=== PATIENT | female | born 1945 | race Caucasian/White ===

== ENCOUNTER 2023-03-16 11:30 | Outpatient (REF) | payer OTHER, SELFPAY ==
[2023-03-16 15:44] LABS: Alanine Aminotransferase 8 U/L (0-31); Albumin Level 4.6 g/dL (3.5-5.0); Alkaline Phosphatase 58 U/L (39-117); Anion Gap 13 (12-20); Aspartate Amino Transferase 13 U/L (5-31); Bilirubin Direct 0.2 mg/dL (0.0-0.5); Bilirubin Total 0.4 mg/dL (0.0-1.0); Blood Urea Nitrogen 20 mg/dL (9-16); Calcium 10.3 mg/dL (8.4-10.2); Carbon Dioxide 23 mmol/L (22-29); Chloride 105 mmol/L (96-108); Cholesterol 153 mg/dL (<200); Estimated Glomerular Filt Rate > 60; Glucose Fasting 103 mg/dL (60-99); HDL Cholesterol 79 mg/dL (>40); LDL Cholesterol Calculated 53 mg/dL (<100); Potassium 4.3 mmol/L (3.3-5.1); Sodium 137 mmol/L (135-145); Total Protein 7.8 g/dL (6.5-8.0); Triglycerides 108 mg/dL (<150)
== END 2023-03-16 11:31 | disposition home or self-care (01) ==
LOC: HO.CHCLDS 11:30
PROVIDERS: Visit Provider Student in an Organized Health Care Education/Training Program
DX: E11.9 Type 2 diabetes mellitus without complications (principal)
CPT/HCPCS: 36415; 80048; 80061; 80076

== ENCOUNTER 2024-11-06 09:57 | Outpatient (REF) | payer MEDICARE, OTHER, SELFPAY ==
--- OUTSIDE RECORDS SUMMARY | 2024-11-06 11:35 | XMS_ITS | Encounter Summary ---
Author Organization [employer] Address [address] [place] [address] 7t [place] [address] Care Team Providers Care Podiatry Teacher Name Role Phone Norma Brown MD Primary Care Provider [phone] Reason for Visit * Reason Comments Med Refill Encounter Details Date Type Department Care Team ([facility] st Contact Info) Description 11/01/[address] [facility] CHC MED & PEDS [address] [place] [address] Norma Brown MD [address] [place] [address] Social History Tobacco Use Types Packs/Day Years Used Date Smoking Tobacco: Never Assessed Comments Unknown Sex and Gender Information Value Date Recorded Sex Assigned at Female 05/22/2022 10:18 AM EDT Legal Sex Female 10:18 AM EDT Gender Identity Female 05/22/2022 10:18 AM EDT Sexual Orientation Don't know 05/22/2022 10 :18 AM EDT documented as of this encounter Plan of Treatment Not on file documented as of this encounter Visit Diagnoses Not on filedocumented in this encounter Care Teams Podiatry Teacher Relationship Specialty Start Date End Date Norma Brown MD [address] [place] [address] PCP - General Family Medicine 07/05/12 documented as of this encounter
--- OUTSIDE RECORDS SUMMARY | 2024-11-06 11:35 | XMS_ITS | Encounter Summary ---
Author Organization [employer] Address [address] [place] [address] 7[address] [place] [address] Care Team Providers Care 3Rd Pressman Name Role Phone Norma Brown MD Primary Care Provider [phone] Reason for Visit * Reason Comments Med Refill Encounter Details Date Type Department Care Team ([facility] st Contact Info) Description 11/13/2022 Refill [facility] CHC MED & PEDS [address] [place] [address] Norma Brown MD [address] [place] [address] Social History Tobacco Use Types Packs/Day Years [...] on filedocumented in this encounter Care Teams 3Rd Pressman Relationship Specialty Start Date End Date Norma Brown MD [address] [place] [address] PCP - General Family Medicine 07/05/12 documented as of this encounter
--- OUTSIDE RECORDS SUMMARY | 2024-11-06 11:35 | XMS_ITS | Encounter Summary ---
Author Organization [employer] Address [address] [facility] 7t [place] [address] Care Team Providers Care Die Tester Name Role Phone Norma Brown MD Primary Care Provider [phone] Encounter Details Date Type Department Care Team (Latest Contact Info) Description 11/06/2024 Travel Social History Tobacco Use Types Packs/Day Years Used Date Smoking Tobacco: Never Smokeless Tobacco: Never Alcohol Use Standard Drinks/Week Comments Never 0 (1 standard drink = 0.6 oz pur e alcohol) Depression Answer Date Recorded Patient Health Questionnaire-9 Score 6 03/16/2023 Housing Stability Answer Date Recorded What is your housing situation today? I have jesusjuan brannon 10/29/[address] you li ve. Do you have problems with any of the following? None of the above 10/29/2024 Food Insecurity Answer Date Recorded Within the past 12 months, y ou worried that your food would run out before you got money to buy more: Never True 10/29/2024 Within the past 12 months,th e food you bought just didn't last and you didn't have enough money to get more: Never True 03/2025 Transportation Answer Date Recorded In the past 12 months, has l ack of transportation kept you from medical appts, meetings, work or from getting things needed for daily living? No 10/29/2024 Utilities Answer Date Recorded In the past 12 months, has t he electric, gas, oil or water company threatened to shut off services in your home? No 10/29/2024 Depression Answer Date Recorded Patient Health Questionnaire-2 Score 4 03/16/2023 Internet Access Answer Date Recorded Internet Access Q1 No 10/29/2024 Internet Access Q2 Internet/Wi-Fi access is not available where I live 10/29/2024 Comments Unknown Sex and Gender Information Value Date Recorded Sex Assigned at Female 05/22/2022 10:18 AM EDT Legal Sex Female 10:18 AM EDT Gender Identity Female 05/22/2022 10:18 AM EDT Sexual Orientation Don't know 05/22/2022 10 :18 AM EDT documented as of this encounter Plan of Treatment Not on file documented as of this encounter Visit Diagnoses Not on filedocumented in this encounter Additional Health Concerns Assessment Noted Time PHQ-9 Depression Total Score: 6 03/16/20 23 10:33 AM EDT documented as of this encounter Care Teams Die Tester Relationship Specialty Start Date End Date Norma Brown MD [address] [place] [id number] PCP - General Family Medicine 07/05/12 documented as of this encounter
--- OUTSIDE RECORDS SUMMARY | 2024-11-06 11:35 | XMS_ITS | Encounter Summary ---
Author Organization [facility] Address [address] [place] [address] 7t [place] [address] Care Team Providers Care Client Director Name Role Phone Norma Brown MD Primary Care Provider [phone] Reason for Referral * Consultation (Routine) - Pending Review Specialty Diagnoses / Procedures Referred By Roxanne vidal Referred To Contact Ophthalmology Diagnoses Type 2 diabetes mellitus without complication, without long-term current use of insulin (CMS/HCC) Benign hypertension Norma Brown MD [address] [place] [address] Phone: tel: fax: Referral ID Status Reason Start Date Expiration Date Visits Requested Visits Authorized [id number] Pending Review Specialty Services Required 11/06/2024 11/06/2025 1 1 Reason for Visit * Reason Comments adult well care visit Encounter Details Date Type Department Care Team ([facility] Contact Info) Description 11/06/2024 9:00 AM EDT Office Visit [facility] CHC MED & PEDS [address] [place] [address] Norma Brown MD [address] [place] [address] Type 2 diabetes mellitus without complication, without long-term current use of insulin (CMS/HCC) (Primary Dx); Benign hypertension; Unstable gait; Encounter for immunization; PE (physical exam), annual Social History Tobacco Use Types Packs/Day Years Used Date Smoking Tobacco: Never Smokeless Tobacco: Never Alcohol Use Standard Drinks/Week Comments Never 0 (1 standard drink = 0.6 oz pur e alcohol) Depression Answer Date Recorded Patient Health Questionnaire-9 Score 6 03/16/2023 Housing Stability Answer Date Recorded What is your housing situation today? I have jesus brannon 10/29/[address] you [...] AM EDT documented as of this encounter Last Filed Vital Signs Vital Sign Reading Time Taken Comments Blood Pressure 133/75 11/06/2024 9:04 AM EDT Pulse 88 11/06/2024 9:04 AM EDT Temperature 37.1 ??C (98.7 ??F) 11/06/2024 9:04 AM ED T Respiratory Rate 16 11/06/2024 9:04 AM EDT Oxygen Saturation 98% 11/06/2024 9:04 AM EDT Inhaled Oxygen Concentration - - Weight 52.6 kg (116 lb) 11/06/2024 9:04 AM EDT Height 151.1 cm (4' 11.5 ) 11/06/2024 9:04 AM ED T Body Mass Index 23.04 11/06/2024 9:04 AM EDT documented in this encounter Progress Notes * Norma Brown MD - 11/06/2024 9:00 AM EDT Subjective Patient ID: Krista Peck is a 78 y.o. female who presents for No chief complaint on file.. Diabetes She presents for her follow-up diabetic visit. She has type 2 diabetes mellitus. Her disease coursehas been stable. There are no hypoglycemic associated symptoms. Pertinent negatives for hypoglycemia include no headaches. There are no diabetic associated symptoms. Pertinent negatives for diabetes include no chest pain. There are no hypoglycemic complications. Symptoms are stable. There are no diabetic complications. Risk factors for coronary artery disease include family history, hypertension,sedentary lifestyle and post-menopausal. Current diabetic treatment includes oral agent (monotherapy). She is compliant with treatment all of the time. She is following a diabetic diet. She has not had a previous visit with a dietitian. An KT inhibitor/angiotensin II receptor ean is being taken. Review of Systems Constitutional: Negative. Respiratory: Negative. Negative for shortness of breath. Cardiovascular: Negative for chest pain and palpitations. Gastrointestinal: Negative. Genitourinary: Negative. Musculoskeletal: Negative for neck pain. Neurological: Negative for headaches. Objective Physical Exam Constitutional: General: She is not in acute distress. Appearance: Normal appearance. She is normal weight. HENT: Head: Normocephalic and atraumatic. Right Ear: Tympanic membrane normal. Left Ear: Tympanic membrane normal. Nose: Nose normal. Mouth/Throat: Mouth: Mucous membranes are moist. Comments: Has braces Eyes: Extraocular Movements: Extraocular movements intact. Pupils: Pupils are equal, round, and reactive to light. Cardiovascular: Rate and Rhythm: Normal rate and regular rhythm. Pulses: Dorsalis pedis pulses are 2+ on the right side and 2+ on the left side. Posterior tibial pulses are 2+ on the right side and 2+ on the left side. Heart sounds: Normal heart sounds. No murmur heard. Pulmonary: Effort: Pulmonary effort is normal. Breath sounds: Normal breath sounds. Abdominal: General: Abdomen is flat. Bowel sounds are normal. There is no distension. Palpations: Abdomen is soft. There is no mass. Tenderness: There is no abdominal tenderness. There is no guarding. Musculoskeletal: General: Normal range of motion. Right lower leg: No edema. Left lower leg: No edema. Right foot: Normal range of motion. No deformity, bunion, Charcot foot or prominent metatarsal heads. Left foot: Normal range of motion. No deformity, bunion, Charcot foot or prominent metatarsal heads. Feet: Right foot: Protective Sensation: 7 sites tested. 7 sites sensed. Skin integrity: Skin integrity normal. No ulcer, blister, skin breakdown, erythema, warmth, callus or dry skin. Toenail Condition: Right toenails are normal. Left foot: Protective Sensation: 7 sites tested. 7 sites sensed. Skin integrity: Skin integrity normal. No ulcer, blister, skin breakdown, erythema, warmth, callus or dry skin. Toenail Condition: Left toenails are normal. Skin: General: Skin is warm. Capillary Refill: Capillary refill takes less than 2 seconds. Findings: No rash. Neurological: General: No focal deficit present. Mental Status: She is alert and oriented to person, place, and time. Psychiatric: Mood and Affect: Mood normal. Behavior: Behavior normal. Assessment/Plan Diagnoses and all orders for this visit: Type 2 diabetes mellitus without complication, without long-term current use of insulin ([facility]) Comments: No changes in med Labs ordered Advised Low sugar and Low carb diet. Counseled regarding self-monitoring of blood glucose. Counseled re: potential co-morbidities including cardiovascular disease Pt refuses to check sugars at home Orders: - Basic Metabolic Panel; Future - Lipid Panel, Standard; Future - Hepatic Function Panel; Future - Albumin, Random Urine W/Creatinine; Future - Referral to Ophthalmology; Future - Hemoglobin A1c; Future - POCT Glucose - POCT HGB A1C Benign hypertension Comments: Well controlled Cont Same meds Maintain a low-sodium diet (less than 2 grams per day). Maintain a regular cardiovascular exercise program. Advised to maintain a low-fat, low-cholesterol diet. Orders: - Basic Metabolic Panel; Future - Lipid Panel, Standard; Future - Hepatic Function Panel; Future - Referral to Ophthalmology; Future Unstable gait Comments: pt will benefit from 3 inch stoop to get into her house and kitchen instead of the 6inch and 6 1/2 inch stoop to avoid falls and further damage to her health Encounter for immunization - PCV-20 VACCINE 6 wks + PE (physical exam), annual Comments: PCV 20 given today RSV to be received at [facility] Other orders - cyanocobalamin (Vitamin B-12) 1000 MCG tablet; Take 1 tablet (1,000 mcg) by mouth Once per day. documented in this encounter Plan of Treatment Scheduled Orders Name Type Priority Associated Diagnoses Orde r Schedule Basic Metabolic Panel Lab Routine Type 2 diabetes mellitus without complication, without long-term current use of insulin (CMS/HCC) Benign hypertension Expected: 11/06/2024 (Approximate), Expires: 11/06/2025 Lipid Panel, Standard Lab Routine Type 2 diabetes mellitus without complication, without long-term current use of insulin (CMS/HCC) Benign hypertension Expected: 11/06/2024 (Approximate), Expires: 11/06/2025 Hepatic Function Panel Lab Routine Type 2 diabetes mellitus without complication, without long-term current use of insulin (CMS/HCC) Benign hypertension Expected: 11/06/2024 (Approximate), Expires: 11/06/2025 Albumin, Random Urine W/Creatinine Lab Routine Type 2 diabetes mellitus without complication, without long-term current use of insulin (CMS/HCC) Expected: 11/06/2024 (Approximate), Expires: 11/06/2025 Hemoglobin A1c Lab Routine Type 2 diabetes mellitus without complication, without long-term current use of insulin (CMS/HCC) Expected: 11/06/2024 (Approximate), Expires: 11/06/2025 Scheduled Referrals Name Type Priority Associated Diagnoses Orde r Schedule Referral to Ophthalmology Outpatient Referral Routine Type 2 diabetes mellitus without complication, without long-term current use of insulin (CMS/HCC) Benign hypertension Expected: 11/06/2024 (Approximate), Expires: 11/06/2025 documented as of this encounter Procedures Procedure Name Priority Date/Time Associated Diagnosis Comments POCT GLYCATED HEMOGLOBIN, TOTAL Routine 11/06/2024 9:29 AM EDT Type 2 diabetes mellitus without complication, without long-term current use of insulin (CMS/HCC) POCT GLUCOSE Routine 11/06/2024 9:28 AM EDT Type 2 diabetes mellitus without complication, without long-term current use of insulin (CMS/HCC) documented in this encounter Results * POCT HGB A1C (11/06/2024 9:29 AM EDT) Hemoglobin A1C 6.0 4.0 - 6.0 % QC Media Lot # [id number] Lot# Expiration Date Blood 11/06/2024 9:29 AM EDT Norma Brown MD POINT OF CARE TEST ENTER/EDIT OR DERABLES Final Result * POCT Glucose (11/06/2024 9:28 AM EDT) Glucose Blood, POC 123 60 - 200 mg/dL QC Media Lot # [id number] Lot# Expiration Date Blood Capillary blood specimen / Unknown 11/06/2024 9:28 AM EDT Result [facility] Norma Brown MD POINT OF CARE TEST ENTER/EDIT OR DERABLES Final Result documented in this encounter Visit Diagnoses Diagnosis Type 2 diabetes mellitus without complication, without long-term current use of insulin ([facility])- Primary Benign hypertension Essential hypertension, benign Unstable gait Abnormality of gait Encounter for immunization PE (physical exam), annual documented in this encounter Additional Health Concerns Assessment Noted Time PHQ-9 Depression Total Score: 6 03/16/20 23 10:33 AM EDT documented as of this encounter Care Teams Client Director Relationship Specialty Start Date End Date Norma Brown MD [address] [place] [id number] PCP - General Family Medicine 07/05/12 documented as of this encounter
--- OUTSIDE RECORDS SUMMARY | 2024-11-06 11:35 | XMS_ITS | Encounter Summary ---
Author Organization [employer] Address [address] [place] [address] [address] [place] [address] Care Team Providers Care Room Cooler Installer Name Role Phone Norma Brown MD Primary Care Provider [phone] Reason for Visit * Reason Comments Med Refill Encounter Details Date Type Department Care Team ([facility] st Contact Info) Description 11/15/2022 Refill [facility] CHC MED & PEDS [address] [place] [address] Norma Brown MD [address] [place] [address] Social History Tobacco Use Types Packs/Day Years [...] on filedocumented in this encounter Care Teams Room Cooler Installer Relationship Specialty Start Date End Date Norma Brown MD [address] [place] [address] PCP - General Family Medicine 07/05/12 documented as of this encounter
--- OUTSIDE RECORDS SUMMARY | 2024-11-06 11:35 | XMS_ITS | Encounter Summary ---
Author Organization [employer] Address [address] [facility] 7t [place] [address] Care Team Providers Care Full Roll Inspector Name Role Phone Norma Brown MD Primary Care Provider [phone] Encounter Details Date Type Department Care Team (Late st Contact Info) Description 09/19/[address] [facility] CHC MED & PEDS [address] [place], [place] [id number] Norma Brown MD [address] [place] [address] Social History Tobacco Use Types Packs/Day Years Used Date Smoking Tobacco: Never Smokeless Tobacco: Never Alcohol Use Standard Drinks/Week Comments Never 0 (1 standard drink = 0.6 oz pur e alcohol) Depression Answer Date Recorded Patient Health Questionnaire-9 Score 6 03/16/2023 Housing Stability Answer Date Recorded What is your housing situation today? I have jesus brannon 05/11/[address] you li ve. Do you have problems with any of the following? None of the above 05/11/2023 Food Insecurity Answer Date Recorded Within the past 12 months, y ou worried that your food would run out before you got money to buy more: Never True 05/11/2023 Within the past 12 months,th e food you bought just didn't last and you didn't have enough money to get more: Never True Transportation Answer Date Recorded In the past 12 months, has l ack of transportation kept you from medical appts, meetings, work or from getting things needed for daily living? No 05/11/2023 Utilities Answer Date Recorded In the past 12 months, has t he electric, gas, oil or water company threatened to shut off services in your home? No 05/11/2023 Depression Answer Date Recorded Patient Health Questionnaire-2 Score 4 03/16/2023 Comments Unknown Sex and Gender Information Value [...] documented as of this encounter Care Teams Full Roll Inspector Relationship Specialty Start Date End Date Norma Brown MD [address] [place] [id number] PCP - General Family Medicine 07/05/12 documented as of this encounter
--- OUTSIDE RECORDS SUMMARY | 2024-11-06 11:35 | XMS_ITS | Clinical Summary ---
Author Organization [employer] Address [address] [facility] 7t [place] [address] Care Team Providers Care Crib Pad Maker Name Role Phone Norma Brown MD Primary Care Provider [phone] Allergies Active Allergy Reactions Criticality Noted Date Comments Aspirin 09/26/2010 Other reaction(s): unspecified Penicillin V 09/26/2010 Other reaction(s): unspecified Medications triamterene-hyd roCHLOROthiazid e (Dyazide) 37.5-25 MG capsule Take 1 capsule by mouth in the morning. 90 capsule 3 09/10/19 25 Active simvastatin (Zocor) 20 MG tablet Take 1 tablet (20 mg) by mouth at bedtime. 90 tablet 3 09/10/19 25 026 Active metFORMIN (Glucophage) 500 MG tablet Take 1 tablet (500 mg) by mouth with breakfast and with evening meal. 180 tablet 3 09/24/19 25 026 Active enalapril (Vasotec) 20 MG tabletIndicatio ns:Primary hypertension Take 1 tablet (20 mg) by mouth Once per day. 90 tablet 3 10/08/19 25 Active sertraline (Zoloft) 100 MG tablet Take 1 tablet (100 mg) by mouth Once per day. 90 tablet 3 10/30/19 25 Active cyanocobalamin (Vitamin B-12) 1000 MCG tablet Take 1 tablet (1,000 mcg) by mouth Once per day. 30 tablet 11 11/07/19 25 026 Active sertraline (Zoloft) 100 MG tablet Take 1 tablet (100 mg) by mouth Once per day. 90 tablet 3 01/31/20 24 025 Discontinued(Re order (will not trigger notification to Pharmacy)) Active Problems Problem Noted Date Diagnosed Date Benign hypertension 12/04/2013 Depressive disorder 12/04/2013 Hypercholesterolemia 12/04/2013 Type II diabetes mellitus 10/21/2012 Encounters Date Type Department Care Team Description 11/06/2024 9:00 AM EDT Office Visit [facility] MED & PEDS [address] [facility] [place] [address] Norma Brown MD Type 2 diabetes mellitus without complication, without long-term current use of insulin ([facility]) (Primary Dx); Benign hypertension; Unstable gait; Encounter for immunization; PE (physical exam), annual 11/06/2024 Travel 10/29/2024 Patient Outreach [facility] [address] [place] [address] Norma Brown MD Pre-visit Planning (SDOH screening negative and Tobacco screening negative) 10/28/2024 Refill [facility] PED[facility] [address] [place] [address] Norma Brown MD 10/06/2024 Refill [facility] [address] [place] [address] Norma Brown MD Primary hypertension 09/23/2024 Refill [facility] [address] [place] [address] Norma Brown MD 09/19/2024 Orders Only [facility] [address] [place] [address] Norma Brown MD 09/19/2024 Telephone [facility] [address] [place] [address] Norma Brown MD call back needed 09/09/2024 Refill [facility] [address] [facility] [place] [address] Norma Brown MD 08/20/2024 Telephone [facility] [address] [place] [address] Norma Brown MD chronic conditions tracking from Last 3 Months Immunizations Name Administration Dates Next Due Pfizer Covid-19 Vaccine 12+ 06/29/2021, Pneumococcal Conjugate PCV 13 06/21/2018 Pneumococcal Conjugate PCV 20 11/06/2024 Pneumococcal Polysaccharide PPSV23 10/13/2005 Td (adult), 5 Lf tetanus tox oid, preservative free, adsorbed 03/06/2017 Tdap 03/16/2023 Zoster, live 03/06/2017 Social History Tobacco Use Types Packs/Day Years Used Date Smoking Tobacco: Never Smokeless Tobacco: Never Tobacco Cessation:Counseling Given: Not Answered Alcohol Use Standard Drinks/Week Comments Never 0 [...] Don't know 05/22/2022 10 :18 AM EDT Last Filed Vital Signs Vital Sign Reading [...] Mass Index 23.04 11/06/2024 9:04 AM EDT Plan of Treatment Health Maintenance Due Date Last Done Comments Eye Exam 1956 Alcohol/Substance Use Screening 1958 Hepatitis C Screening 1964 Diabetes: Urine Protein Screening 1965 Zoster Vaccines (2 of 3) 05/01/2017 03/06/2017 RSV Patients and Patients Aged 60 years or older (1 - 1-dose 75+ series) 2021 Depression Screening 03/16/2024 03/16/2023, 03/16/20 23 Lipid Panel 03/16/2024 03/16/2023 Influenza Vaccine (#1) 2025 Postp oned from 03/23/2024 (Patient Refused) Diabetes: Hemoglobin A1C 05/08/2025 11/06/2024, 0811/2022 SDOH Screening 10/29/2025 10/29/2024 Tobacco Screening 10/29/2025 10/29/2024 COVID-19 Vaccine ( season) 2025 06/29/2021, 06/08/2021 Postponed from 03/23/2024 (Patient Refused) Diabetes: Foot Exam 11/06/2025 11/06/2024, 11/06/2024, 11/06/2024, Additional history exists DTaP/Tdap/Td Vaccines (2 - Td or Tdap) 03/16/2033 03/16/2023, 03/06/2017 Pneumococcal Vaccine: 50+ Years Completed 11/06/2024, 06/21/2018, 10/13/2005 HIB Vaccines Aged Out No longer eligi ble based on patient's age to complete this topic HPV Vaccines Aged Out No longer eligi ble based on patient's age to complete this topic Hepatitis A Vaccines Aged Out No long er eligible based on patient's age to complete this topic Hepatitis B Vaccines Aged Out No long er eligible based on patient's age to complete this topic IPV Vaccines Aged Out No longer eligi ble based on patient's age to complete this topic Meningococcal Vaccine Aged Out No rehan utcker eligible based on patient's age to complete this topic RSV under 20 months Aged Out No longe r eligible based on patient's age to complete this topic Rotavirus Vaccines Aged Out No longer eligible based on patient's age to complete this topic Procedures Procedure Name Priority Date/Time Associated Diagnosis Comments POCT GLYCATED HEMOGLOBIN, TOTAL Routine 11/06/2024 9:29 AM EDT Type 2 diabetes mellitus without complication, without long-term current use of insulin ([facility]) POCT GLUCOSE Routine 11/06/2024 9:28 AM EDT Type 2 diabetes mellitus without complication, without long-term current use of insulin ([facility]) LIPID PANEL, STANDARD Routine 03/16/2023 11:28 AM EDT Type 2 diabetes mellitus without complication, without long-term current use of insulin ([facility]) from Last 3 Months or Most Recently Relevant to Health Maintenance Results * POCT HGB A1C (11/06/2024 9:29 AM EDT) Hemoglobin A1C 6.0 4.0 - 6.0 % QC Media Lot # [id number] Lot# Expiration Date Blood 11/06/2024 9:29 AM EDT us Norma Brown MD POINT OF CARE TEST ENTER/EDIT OR DERABLES Final Result * POCT Glucose (11/06/2024 9:28 AM EDT) Glucose Blood, POC 123 60 - 200 mg/dL [employer] Media Lot # [id number] Lot# Expiration Date Blood Capillary blood specimen / Unknown 11/06/2024 9:28 AM EDT us Norma Brown MD POINT OF CARE TEST ENTER/EDIT OR DERABLES Final Result * Lipid Panel, Standard (03/16/2023 11:28 AM EDT) Triglycerides 108 <150 mg/dL [facility] Comment:Desirable Triglyceri de: less than 150 mg/dLBorderline High Triglyceride 150-199 mg/dLHigh Triglyceride: 200-499 mg/dLVery High Triglyceride: greater than or equal to 5OO mg/dL Cholesterol 153 <200 mg/dL [facility] Comment:Desirable Cholestero l: less than 200 mg/dLBorderline High Cholesterol: 200-239 mg/dLHigh Cholesterol: greater than 239 mg/dL LDL Cholesterol Calculated 53 <100 mg/dL [facility] Comment:Desirable LDL: less than 100 mg/dLNear Optimal/Above Optimal LDL: 110- 129 mg/dLBorderline High LDL: 130-159 mg/dLHigh LDL: 160-189 mg/dLVery High LDL: greater than or equal to 190 mg/dL HDL Cholesterol 79 >40 mg/dL [facility] Comment:Desirable HDL: great er than 40 mg/dL Note: This HDL assay may give artificially low results in patients with liver disease. Blood Venous blood specimen / Unknown 03/16/2023 11:28 AM EDT 03/16/2023 1:57 PM EDT Norma Brown MD LAB BLOOD ORDERABLES Final Resul t [facility] [address] [place] [phone] from Last 3 Months or Most Recently Relevant to Health Maintenance Insurance [employer] MEDICARE REPLACEMENT [facility] [place] [id number] Care Teams Crib Pad Maker Relationship Specialty Start Date End Date Norma Brown MD [address] [place] [address] PCP - General Family Medicine 07/05/12
--- OUTSIDE RECORDS SUMMARY | 2024-11-06 11:35 | XMS_ITS | Encounter Summary ---
Author Organization [employer] Address [address] [place] [address] 7t [place] [address] Care Team Providers Care Razor Grinder Name Role Phone Norma Brown MD Primary Care Provider [phone] Reason for Visit * Reason Onset Date Comments Reschedule 02/05/2023 Encounter Details Date Type Department Care Team ([facility] st Contact Info) Description 02/05/2023 Telephone [facility] MED & PEDS [address] [place] [address] Norma Brown MD [address] [place] [address] Reschedule Social History Tobacco Use Types Packs/Day Years [...] on filedocumented in this encounter Care Teams Razor Grinder Relationship Specialty Start Date End Date Norma Brown MD [address] [place] [address] PCP - General Family Medicine 07/05/12 documented as of this encounter
--- OUTSIDE RECORDS SUMMARY | 2024-11-06 11:35 | XMS_ITS | Encounter Summary ---
Author Organization [employer] Address [address] [facility] [address] [place] [address] Care Team Providers Care Creative Services Designer Name Role Phone Norma Brown MD Primary Care Provider [phone] Reason for Visit * Reason Onset Date Comments Med Refill 01/10/2024 Encounter Details Date Type Department Care Team ([facility] st Contact Info) Description 01/10/2024 Telephone [facility] [address] [place] [address] Norma Brown MD [address] [place], [place] [id number] Med Refill Social History Tobacco Use Types Packs/Day Years [...] documented as of this encounter Care Teams Creative Services Designer Relationship Specialty Start Date End Date Norma Brown MD [address] [place] [address] PCP - General Family Medicine 07/05/12 documented as of this encounter
[2024-11-06 14:38] LABS: Estimated Average Glucose 123 mg/dL; Hemoglobin A1C 129.8876 umol/L; Hemoglobin A1c % 5.9 % (<6.0); Total Hemoglobin (HGBA1C) 3200.4481 umol/L
[2024-11-06 14:48] LABS: Alanine Aminotransferase 11 U/L (0-31); Albumin Level 4.4 g/dL (3.5-5.0); Alkaline Phosphatase 77 U/L (39-117); Anion Gap 13 (12-20); Aspartate Amino Transferase 21 U/L (5-31); Bilirubin Direct 0.2 mg/dL (0.0-0.5); Bilirubin Total 0.4 mg/dL (0.0-1.0); Blood Urea Nitrogen 31 mg/dL (9-16); Calcium 9.7 mg/dL (8.4-10.2); Carbon Dioxide 23 mmol/L (22-29); Chloride 107 mmol/L (96-108); Cholesterol 160 mg/dL (<200); Estimated Glomerular Filt Rate > 60; Glucose Random 105 mg/dL (60-115); HDL Cholesterol 74 mg/dL (>40); LDL Cholesterol Calculated 67 mg/dL (<100); Potassium 4.4 mmol/L (3.3-5.1); Sodium 139 mmol/L (135-145); Total Protein 7.4 g/dL (6.5-8.0); Triglycerides 99 mg/dL (<150)
== END 2024-11-06 09:58 | disposition home or self-care (01) ==
LOC: HO.CHCLDS 09:57
PROVIDERS: Visit Provider Student in an Organized Health Care Education/Training Program
DX: E11.9 Type 2 diabetes mellitus without complications (principal); I10 Essential (primary) hypertension
CPT/HCPCS: 36415; 80048; 80061; 80076; 83036

== ENCOUNTER 2025-06-03 11:10 | Emergency (ER) | payer MEDICARE, OTHER, SELFPAY ==
--- NOTE | ~2025-06-03 | XR_ITS ---
EXAMINATION: XR THORACIC SPINE CLINICAL INFORMATION: fall on back COMPARISON: None available. TECHNIQUE: AP and lateral views FINDINGS: Multilevel marginal osteophyte formation and endplate sclerosis decreased intervertebral disc height throughout the axial skeleton. 10% volume loss of the vertebral bodies in the mid thoracic spine likely old and osteoporotic. No acute cortical disruption or gross malalignment. No lytic or blastic lesions. S-shaped curvature of the thoracic spine which could be positional. Kyphotic deformity mid thoracic spine. XR/XR thoracic spine 3V IMPRESSION: Multilevel spondylosis without acute fracture or trauma-related listhesis. EXAMINATION: XR LUMBOSACRAL SPINE CLINICAL INFORMATION: fall on back COMPARISON: None available. TECHNIQUE: AP and lateral views. FINDINGS: Multilevel marginal osteophyte formation and endplate sclerosis subchondral cyst formation throughout the axial skeleton pronounced at L3-4, L4-5 and L5-S1 level. No acute cortical disruption or gross malalignment. No lytic or blastic lesions. Vascular calcifications. Subchondral cyst formation and joint space narrowing and sclerosis along the right coxofemoral joint no fully included in the ilpyp-wr-xafc. Sclerosis and vacuum phenomenon, right sacroiliac joint. IMPRESSION: Multilevel lumbar spondylosis without acute fracture or trauma-related listhesis. Osteoarthrosis/osteoarthritis, moderate to severe, right hip. Electronically signed by: John Ellis MD 06/03/2025 12:00 PM [facility]
--- NOTE | ~2025-06-03 | XR_ITS ---
EXAMINATION: XR THORACIC SPINE CLINICAL INFORMATION: fall on back COMPARISON: None available. TECHNIQUE: AP and lateral views FINDINGS: Multilevel marginal osteophyte formation and endplate sclerosis decreased intervertebral disc height throughout the axial skeleton. 10% volume loss of the vertebral bodies in the mid thoracic spine likely old and osteoporotic. No acute cortical disruption or gross malalignment. No lytic or blastic lesions. S-shaped curvature of the thoracic spine which could be positional. Kyphotic deformity mid thoracic spine. XR/XR lumbar spine 2-3V IMPRESSION: Multilevel spondylosis without acute fracture or trauma-related listhesis. EXAMINATION: XR LUMBOSACRAL SPINE CLINICAL INFORMATION: fall on back COMPARISON: None available. TECHNIQUE: AP and lateral views. FINDINGS: Multilevel marginal osteophyte formation and endplate sclerosis subchondral cyst formation throughout the axial skeleton pronounced at L3-4, L4-5 and L5-S1 level. No acute cortical disruption or gross malalignment. No lytic or blastic lesions. Vascular calcifications. Subchondral cyst formation and joint space narrowing and sclerosis along the right coxofemoral joint no fully included in the ubgrh-po-hriw. Sclerosis and vacuum phenomenon, right sacroiliac joint. IMPRESSION: Multilevel lumbar spondylosis without acute fracture or trauma-related listhesis. Osteoarthrosis/osteoarthritis, moderate to severe, right hip. Electronically signed by: John Ellis MD 06/03/2025 12:00 PM [facility]
[2025-06-03 11:16] VITALS: BP 162/68; PULSE 50; O2SAT 99
[2025-06-03 11:21] VITALS: BP 147/40; PULSE 53; RESP 16; TEMP 36.8; O2SAT 98; BMI 20.5
--- NOTE | 2025-06-03 11:56 | PC.NURSE ---
Pt states she is not in pain and does not need tylenol
[2025-06-03 12:00] VITALS: BP 150/47; PULSE 60; RESP 16; O2SAT 97
[2025-06-03 12:01] LABS: MANUAL DIFF FLAG NO
[2025-06-03 12:02] LABS: Hematocrit 36.2 % (37.0-47.0); Hemoglobin 11.2 g/dl (12.0-16.0); Imm Gran Abs Auto 0.01 X10*3/uL (0.00-0.03); Imm Gran Pct Auto 0.2 % (0.0-0.4); Lymphocytes Absolute Auto 1.9 X10*3/uL (1.2-4.9); Mean Corpuscular HGB Conc 30.9 g/dl (31.0-35.0); Mean Corpuscular Hemoglobin 27.6 pg (27.0-33.0); Mean Corpuscular Volume 89.2 fL (80.0-98.0); NRBC Abs Auto 0.000 X10*3/uL (0.0-0.012); NRBC Pct Auto 0.0 /100WBC (0.0-0.2); Platelet Count 174 X10*3/uL (160-400); Red Blood Count 4.06 X10*6/uL (4.20-5.50); White Blood Count 5.3 X10*3/uL (4.8-10.8)
[2025-06-03 12:16] LABS: Alanine Aminotransferase 10 U/L (0-31); Albumin Level 4.2 g/dL (3.5-5.0); Alkaline Phosphatase 70 U/L (39-117); Anion Gap 10 (12-20); Aspartate Amino Transferase 17 U/L (5-31); Blood Urea Nitrogen 23 mg/dL (9-16); Calcium 9.2 mg/dL (8.4-10.2); Carbon Dioxide 24 mmol/L (22-29); Chloride 109 mmol/L (96-108); Creatinine Clr Calc Pharmacy 42.7; Estimated Glomerular Filt Rate > 60; Potassium 3.9 mmol/L (3.3-5.1); Sodium 139 mmol/L (135-145); Total Protein 6.7 g/dL (6.5-8.0)
--- NOTE | 2025-06-03 12:35 | ED.FALL ---
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 Patient states she lost her balance due to left leg giving out and fell to ground landing on back, denies head trauma or LOC. States had difficulty getting off the floor & was on the floor for about 30 minutes. Denies anticoagulation use. Denies pain at present, CP/SOB, abdominal pain, focal weakness, incontinence, retention. States leg commonly gives out. Denies symptoms prior to fall Related Data Allergies Allergy/AdvReac Type Severity Reaction Status Date / Time aspirin (Aspirin) Allergy Mild UNKNOWN Verified 06/03/25 11:56 egg (Egg) Allergy Mild UNKNOWN Verified 06/03/25 11:56 Penicillins Allergy Mild [place] Verified 06/03/25 11:56 Review of Systems Review of Systems: Yes all other systems are reviewed and are negative Constitutional: Constitutional: Reports as per HPI Neurologic: Denies Abnormal speech present [facility] Past Medical History Attestation statement: The following information was validated with the patient. Source: old records reviewed Physical Exam Vital Signs: Vital Signs: Last Vital Signs Temp 98.7 F 06/03/25 14:09 Pulse 60 06/03/25 14:09 Resp 16 06/03/25 14:09 BP 150/47 H 06/03/25 14:09 Pulse Ox 97 06/03/25 14:09 O2 Del Method Room Air 06/03/25 14:09 BMI result Body Mass Index 20.5 Const: General: cooperative, healthy appearing and no acute distress Orientation/consciousness: patient oriented x3 Limitations: no limitations HEENT: Head: Yes normal to inspection and Yes atraumatic Ears: hearing grossly normal bilaterally General nose exam: Normal external nose present Face and sinus: Yes normal facial exam Eyes: General: appearance normal, both eyes and all related structures Pupils: Equal, round and reactive pupils present EOM: EOMs intact bilaterally Neck: Neck: Yes normal visual inspection and Yes no meningeal signs Resp: Effort & Inspection: normal respiratory effort and no respiratory distress Cardio: Rate: regular rate Heart sounds: S1 normal heart sound present and S2 normal heart sound present GI: Inspection: Yes normal to inspection Palpation (GI): Soft to palpation, nontender, no guarding and not rigid Back/Spine/Pelvis: Other: No midline cervical/thoracic/lumbar spinous tenderness/step-off + lower thoracic midline swelling/superficial abrasion with mild tenderness. Skin: Rashes: no rashes Wounds: no wounds Neuro: Other: Strength intact throughout. No saddle anesthesia. Sensation intact to light touch. Neurovascular intact distally General: patient oriented x3, tone normal, moves all extremities, no meningeal signs, no focal motor deficits and CN's II-XI intact bilaterally Cranial nerves: Yes CN's II-XII intact bilaterally, Yes Equal, round and reactive pupils present and Yes Bilaterally intact EOM present Cognition (Neuro): normal cognition Speech: No Abnormal speech present Gait exam (Neuro): Normal gait present Motor exam (neuro): 5/5 motor strength present throughout Extrem: General: Yes normal to inspection Course Course Course Narrative: -1250--labs at patient's baseline. CPK WNL XR thoracic spine/XR lumbar spine 2-3V 3V IMPRESSION: Multilevel lumbar spondylosis without acute fracture or trauma-related listhesis. Osteoarthrosis/osteoarthritis, moderate to severe, right hip. -UA negative. Patient ambulates at baseline/with steady gait with cane in the ED. Is not interested in PT/case management eval. Lives alone. States has someone helping her with grocery shopping/delivering meals Results discussed with patient including worrisome signs and symptoms and strict return precautions, and when to return to the emergency department. They verbalized understanding and feel safe for discharge at this time. 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 Patient states she lost her balance due to left leg giving out and fell to ground landing on back, denies head trauma or LOC. On exam vital signs stable, NAD, nontoxic appearing, + midline lower thoracic tenderness to palpation. No focal neuro deficits. No red flag symptoms. Concern for fracture vs contusion vs MSK pain/strain. Rule out rhabdo. Lower suspicion for acute infectious/metabolic etiologies. Low suspicion for ICH/SAH Plan: Labs, thoracic x-ray, re-evaluate Please refer to course for remaining clinical decision making, interpretation of labs/imaging results, and discussions with consultants and/or family members. Differential Diagnosis Differential Diagnoses: The differential diagnosis associated with the presentation includes As above Admission/Observation Consideration of admission/observation: Escalation of care including admission/observation considered Lab Data MDM Lab Attestation statement: I reviewed the patient's lab results. 06/03/25 11:57 06/03/25 11:57 Labs: Lab Results 06/03/25 06/03/25 Range/Units 11:57 13:01 WBC 5.3 (4.8-10.8) X10*3/uL RBC 4.06 L (4.20-5.50) X10*6/uL Hgb 11.2 L (12.0-16.0) g/dl Hct 36.2 L (37.0-47.0) % MCV 89.2 (80.0-98.0) fL MCH 27.6 (27.0-33.0) pg MCHC 30.9 L (31.0-35.0) g/dl RDW 15.2 (11.0-16.0) % Plt Count 174 (160-400) X10*3/uL MPV 10.3 (9.4-12.3) fL Immature Gran % (Auto) 0.2 (0.0-0.4) % Neut % (Auto) 50.6 (45-73) % Lymph % (Auto) 35.0 (20-40) % [place] % (Auto) 8.6 (2-11) % Eos % (Auto) 4.5 H (0-4) % Baso % (Auto) 1.1 (0-2) % Lymph # (Auto) 1.9 (1.2-4.9) X10*3/uL [place] # (Auto) 0.5 (0.1-1.2) X10*3/uL Eos # (Auto) 0.2 (0.0-0.4) X10*3/uL Baso # (Auto) 0.1 (0.0-0.2) X10*3/uL Abs Immat Gran (auto) 0.01 (0.00-0.03) X10*3/uL Absolute Neuts (auto) 2.7 (2.0-8.3) x10*3/uL Absolute Nucleated RBC 0.000 (0.0-0.012) X10*3/uL Nucleated RBC % (auto) 0.0 (0.0-0.2) /100WBC Sodium 139 (135-145) mmol/L Potassium 3.9 (3.3-5.1) mmol/L Chloride 109 H (96-108) mmol/L Carbon Dioxide 24 (22-29) mmol/L Anion Gap 10 L (12-20) BUN 23 H (9-16) mg/dL Creatinine 0.78 (0.5-1.4) mg/dL Estim Creat Clear Calc 42.7 Estimated GFR > 60 Random Glucose 104 (60-115) mg/dL Calcium 9.2 (8.4-10.2) mg/dL Total Bilirubin 0.4 (0.0-1.0) mg/dL Direct Bilirubin 0.2 (0.0-0.5) mg/dL AST 17 (5-31) U/L ALT 10 (0-31) U/L Alkaline Phosphatase 70 (39-117) U/L Total Creatine Kinase 30 (26-140) U/L Total Protein 6.7 (6.5-8.0) g/dL Albumin 4.2 (3.5-5.0) g/dL Urine Color Yellow Urine Appearance Clear Urine pH 7.0 (5.0-9.0) Ur Specific [place] 1.015 (1.005-1.025) Urine Protein Negative (Neg-Trace) mg/dL Urine Glucose (UA) Negative (Negative) mg/dL Urine Ketones Negative (Negative) mg/dL Urine Blood Negative (Negative) Urine Nitrite Negative (Negative) Ur Leukocyte Esterase Trace H (Negative) Urine RBC 0-2 (0-2) /HPF Urine WBC 0-5 (0-5) /HPF Ur Squamous Epith Cells 3-5 (0-2) /HPF Urine Bacteria None Seen (None Seen) Hyaline Casts 0-2 (0-2) /LPF Independent Interpretation I performed an independent interpretation of an: Plain X-Ray Radiology Impression Discussion of test interpretation with radiology: I have reviewed the radiologist's reading. Independent Historian Clinical information obtained from an independent historian. History obtained from or confirmed by: EMS External Record Review External record reviewed: Inpatient record, Office record, Outpatient record, Prior outpatient labs, Prior outpatient radiology, Primary care record and Outside ED record Tests considered The following testing was considered but not selected: As above Prescription Management I considered prescription management with: Pain Medication and Antibiotic Chronic Conditions Patient?s care impacted by: Diabetes, Hypertension and Other Social Determinants Patient?s care significantly limited by Social Determinants of Health including: Other Social Determinant of Health Discharge Plan Discharge Clinical Impression: Back injury, Fall Patient Disposition: Home, Self-Care Instructions: Back Pain (ED) Additional Instructions: Your x-rays show arthritic changes Your blood work and urine is reassuring Please have close follow up with your primary care doctor Take Tylenol at home for pain as needed If you have persistent or recurrent falls, worsening back pain, difficulty or inability to urinate return to the ED immediately Referrals: Norma Brown MD [Primary Care Provider, Internal Medicine] - 3 days Interventions: ED Discharge Assessment Last Done: 06/03/25 14:09 Discharge Date/Time: 06/03/25 14:09 Print Language: Colombian
--- NOTE | 2025-06-03 13:03 | PC.NURSE ---
ambulated with cane to restroom and back, urine sample collected
[2025-06-03 13:12] LABS: Appearance Urine Clear; Glucose Urine UA Negative (Negative); PH 7.0 (5.0-9.0); Specific Gravity - Urine 1.015 (1.005-1.025); UMIC TRIGGER UACC YES
[2025-06-03 14:09] VITALS: BP 150/47; PULSE 60; RESP 16; TEMP 37.1; O2SAT 97
--- OUTSIDE RECORDS SUMMARY | 2025-06-03 14:21 | XMS_ITS | Encounter Summary ---
Author Organization [employer] Address [address] [facility] 7t [place] [address] Care Team Providers Care Obgyn Nurse Name Role Phone Norma Brown MD Primary Care Provider [phone] Mia Marie CNP Primary Care Provider [phone] Reason for Visit * Reason Onset Date Comments Med Refill 01/10/2024 Encounter Details Date Type Department Care Team ([facility] st Contact Info) Description 01/10/2024 Telephone [facility] MEDICINE [address] [place] [address] Norma Brown MD [address] [place], [place] [phone] Med Refill Social History Tobacco Use Types [...] documented as of this encounter Care Teams Obgyn Nurse Relationship Specialty Start Date End Date Norma Brown MD [address] [place] [id number] PCP - General Family Medicine 07/05/12 05/19/25 Mia Marie CNP [address] [place] [address] PCP - General Family Medicine 05/20/25 documented as of this encounter
--- OUTSIDE RECORDS SUMMARY | 2025-06-03 14:21 | XMS_ITS | Encounter Summary ---
Author Organization [employer] Address [address] [place] [address] 7 [place] [address] Care Team Providers Care Senior Instructional Designer Name Role Phone Norma Brown MD Primary Care Provider [phone] Mia Marie CNP Primary Care Provider [phone] Reason for Visit * Reason Comments Med Refill Encounter Details Date Type Department Care Team ([facility] st Contact Info) Description 11/13/2022 Refill [facility] [address] [place], [place] [phone] Norma Brown MD [address] [place] [address] Social History Tobacco Use Types Packs/Day Years [...] on filedocumented in this encounter Care Teams Senior Instructional Designer Relationship Specialty Start Date End Date Norma Brown MD [address] [place] [address] PCP - General Family Medicine 07/05/12 05/19/25 Mia Marie CNP [address] [place] [address] PCP - General Family Medicine 05/20/25 documented as of this encounter
--- OUTSIDE RECORDS SUMMARY | 2025-06-03 14:21 | XMS_ITS | Encounter Summary ---
Author Organization [employer] Address [address] [place] [address] 7t [place] [address] Care Team Providers Care Data Entry Machine Operator Name Role Phone Norma Brown MD Primary Care Provider [phone] Mia Marie CNP Primary Care Provider [phone] Reason for Visit * Reason Onset Date Comments Reschedule 02/05/2023 Encounter Details Date Type Department Care Team ([facility] st Contact Info) Description 02/05/2023 Telephone [facility] MED & PEDS [address] [place] [address] Norma Brown MD [address] [place] [address] Reschedule Social History Tobacco Use Types Packs/Day [...] on filedocumented in this encounter Care Teams Data Entry Machine Operator Relationship Specialty Start Date End Date Norma Brown MD [address] [place] [address] PCP - General Family Medicine 07/05/12 05/19/25 Mia Marie CNP [address] [place] [address] PCP - General Family Medicine 05/20/25 documented as of this encounter
--- OUTSIDE RECORDS SUMMARY | 2025-06-03 14:21 | XMS_ITS | Encounter Summary ---
Author Organization [employer] Address [address] [place] [address] 7 [place] [address] Care Team Providers Care Orthodontist Name Role Phone Norma Brown MD Primary Care Provider [phone] Mia Marie CNP Primary Care Provider [phone] Reason for Visit * Reason Comments Med Refill Encounter Details Date Type Department Care Team ([facility] st Contact Info) Description 11/15/2022 Refill [facility] [address] [place], [place] [phone] Norma Brown MD [address] [place] [address] Social History Tobacco Use Types Packs/Day Years [...] on filedocumented in this encounter Care Teams Orthodontist Relationship Specialty Start Date End Date Norma Brown MD [address] [place] [address] PCP - General Family Medicine 07/05/12 05/19/25 Mia Marie CNP [address] [place] [address] PCP - General Family Medicine 05/20/25 documented as of this encounter
--- OUTSIDE RECORDS SUMMARY | 2025-06-03 14:21 | XMS_ITS | Encounter Summary ---
Author Organization [employer] Address [address] [facility] 7[address] [place] [address] Care Team Providers Care Supervisor Edging Name Role Phone Mia Marie SAL Primary Care Provider [phone] Encounter Details Date Type Department Care Team (Late st Contact Info) Description 06/03/2025 Orders Only [facility] External Provider, [facility] Social History Tobacco Use Types Packs/Day Years [...] on file documented as of this encounter Procedures Procedure Name Priority Date/Time Associated Diagnosis Comments URINALYSIS, COMPLETE, WITH REFLEX TO CULTURE Routine 06/03/2025 1:01 PM EST CREATINE KINASE, TOTAL Routine 06/03/2025 11:57 AM EST HEPATIC FUNCTION PANEL Routine 06/03/2025 11:57 AM EST BASIC METABOLIC PANEL Routine 06/03/2025 11:57 AM EST XR THORACIC SPINE 3 VIEWS Routine 06/03/2025 11:53 AM EST XR LUMBAR SPINE 2-3 VIEWS Routine 06/03/2025 11:50 AM EST documented in this encounter Results * (ABNORMAL) Urinalysis, Complete, with Reflex to Culture (06/03/2025 1:01 PM EST) Color Urine Yellow [facility] Appearance Urine Clear [facility] PH 7.0 5.0 - 9.0 [facility] Glucose Urine UA Negative Negative mg/dL [facility] Urine Blood Negative Negative [facility] Specific [place] - Urine 1.015 1.005 - 1.025 [facility] Urine Protein Negative Neg-Trace mg/dL [facility] Urine Ketones Negative Negative mg/dL [facility] Nitrite Urine Negative Negative [facility] Leukocyte Esterase Urine Trace(A) Negative [facility] RBC Urine 0-2 0 - 2 /HPF [facility] Urine WBC 0-5 0 - 5 /HPF [facility] Urine Squamous Epithelial Cell 3-5 0 - 2 /HPF [facility] Urine Bacteria None Seen None Seen [facility] Hyaline Casts, Urine 0-2 0 - 2 /LPF [facility] 06/03/2025 1:01 PM EST 06/03/2025 1:08 PM EST Narrative [facility] - 06/03/2025 1:18 PM EST [id number], Clean Catch us Generic External Data Provider LAB URINE ORDERAB LES Final Result Performing Organization Address [facility]/ZIP Co de Phone Number [facility] [address] [place] [phone] * Creatine Kinase, Total (06/03/2025 11:57 AM EST) Creatine Kinase Total 30 26 - 140 U/L [facility] 06/03/2025 11:5 7 AM EST 06/03/2025 12:00 PM EST Generic External Data Provider LAB BLOOD ORDERAB LES Final Result Performing Organization Address [facility] Co de Phone Number [facility] [address] [place] [phone] * (ABNORMAL) Basic Metabolic Panel (06/03/2025 11:57 AM EST) Sodium 139 135 - 145 mmol/L [facility] Potassium 3.9 3.3 - 5.1 mmol/L [facility] Chloride 109(H) 96 - 108 mmol/L [facility] Carbon Dioxide 24 22 - 29 mmol/L [facility] Anion Gap 10(L) 12 - 20 [facility] Urea Nitrogen (BUN) 23(H) 9 - 16 mg/dL [facility] Creatinine, Serum 0.78 0.5 - 1.4 mg/dL [facility] Creatinine Clr Calc Pharmacy 42.7 [facility] Comment:Provided height and weight: 152.4 cm,47.627 kg.eGFR (calculated from the MDRD study equation) and eCrCl(calculated from the Cockcroft-Gault equation) are based ondifferent parameters and may not yield comparable results.If eCrCl result is absurd, please check patient'sheight/weight. Estimated Glomerular Filt Rate >60 [facility] Comment:Chronic Kidney Disea se: Estimated GFR < 60 mL/min/1.80w6Lisvpj Kidney Disease: Estimated GFR < 15 mL/min/1.73m2 Glucose 104 60 - 115 mg/dL [facility] Calcium 9.2 8.4 - 10.2 mg/dL [facility] 06/03/2025 11:5 7 AM EST 06/03/2025 12:00 PM EST us Generic External Data Provider LAB BLOOD ORDERAB LES Final Result Performing Organization Address City/[facility]/ZIP Co de Phone Number [facility] [address] [place] [phone] * Hepatic Function Panel (06/03/2025 11:57 AM EST) Bilirubin, Total 0.4 0.0 - 1.0 mg/dL [facility] Bilirubin, Direct 0.2 0.0 - 0.5 mg/dL [facility] Aspartate Amino Transferase 17 5 - 31 U/L [facility] Alanine Aminotransferase 10 0 - 31 U/L [facility] Total Protein 6.7 6.5 - 8.0 g/dL [facility] Albumin Level 4.2 3.5 - 5.0 g/dL [facility] Alkaline Phosphatase 70 39 - 117 U/L [facility] 06/03/2025 11:5 7 AM EST 06/03/2025 12:00 PM EST us Generic External Data Provider LAB BLOOD ORDERAB LES Final Result [facility] [address] [place] [address] [phone] * XR Thoracic Spine 3 Views (06/03/2025 11:53 AM EST) Anatomical Region Laterality Modality Spine, T-spine Radiographic Citlaly ging 06/03/2025 11:5 3 AM EST Narrative 06/03/2025 12:03 PM EST [address] [address] XRay Report Signed Patient: Krista Peck MR#: [id number] : 1945 Acct:[id number] Age/Sex: 79 / F ADM Date: 06/03/25 Loc: HO.ED Attending Dr: Ordering Physician: Hayley Colin Date of Service: 06/03/25 Procedure(s): XR thoracic spine 3V Accession Number(s): [id number] cc: Norma Brown MD; Hayley Colin Reason for Exam: fall on back EXAMINATION: XR THORACIC SPINE CLINICAL INFORMATION: fall on back COMPARISON: None available. TECHNIQUE: AP and lateral views FINDINGS: Multilevel marginal osteophyte formation and endplate sclerosis decreased intervertebral disc height throughout the axial skeleton. 10% volume loss of the vertebral bodies in the mid thoracic spine likely old and osteoporotic. No acute cortical disruption or gross malalignment. No lytic or blastic lesions. S-shaped curvature of the thoracic spine which could be positional. Kyphotic deformity mid thoracic spine. XR/XR thoracic spine 3V IMPRESSION: Multilevel spondylosis without acute fracture or trauma-related listhesis. EXAMINATION: XR LUMBOSACRAL SPINE CLINICAL INFORMATION: fall on back COMPARISON: None available. TECHNIQUE: AP and lateral views. FINDINGS: Multilevel marginal osteophyte formation and endplate sclerosis subchondral cyst formation throughout the axial skeleton pronounced at L3-4, L4-5 and L5-S1 level. No acute cortical disruption or gross malalignment. No lytic or blastic lesions. Vascular calcifications. Subchondral cyst formation and joint space narrowing and sclerosis along the right coxofemoral joint no fully included in the [id number]. Sclerosis and vacuum phenomenon, right sacroiliac joint. IMPRESSION: Multilevel lumbar spondylosis without acute fracture or trauma-related listhesis. Osteoarthrosis/osteoarthritis, moderate to severe, right hip. Electronically signed by: John Ellis MD 06/03/2025 12:00 PM EST Dictated By: John Gonzalez MD Signed By: <Electronically signed by John Martin MD in OV> 06/03/25 1200 DD/ 1153 TD/TT: 06/03/25 1155 Rotary Engraver: Procedure Note Donotuseinterpreter, Image - 06/03/[address] [address] XRay Report Signed Patient: Andreia Peck#: [id number] : 1945cct:[id number] Age/Sex: 79 / FADM Date: 06/03/25 Loc: HO.ED Attending Dr: Ordering Physician: Hayley Colin Date of Service: 06/03/25 Procedure(s): XR thoracic spine 3V Accession Number(s): [id number] cc: Norma Brown MD; Hayley Colin Reason for Exam: fall on back EXAMINATION: XR THORACIC SPINE CLINICAL INFORMATION: fall on back COMPARISON: None available. TECHNIQUE: AP and lateral views FINDINGS: Multilevel marginal osteophyte formation and endplate sclerosis decreased intervertebral disc height throughout the axial skeleton. 10% volume loss of the vertebral bodies in the mid thoracic spine likely old and osteoporotic. No acute cortical disruption or gross malalignment. No lytic or blastic lesions. S-shaped curvature of the thoracic spine which could be positional. Kyphotic deformity mid thoracic spine. XR/XR thoracic spine 3V IMPRESSION: Multilevel spondylosis without acute fracture or trauma-related listhesis. EXAMINATION: XR LUMBOSACRAL SPINE CLINICAL INFORMATION: fall on back COMPARISON: None available. TECHNIQUE: AP and lateral views. FINDINGS: Multilevel marginal osteophyte formation and endplate sclerosis subchondral cyst formation throughout the axial skeleton pronounced at L3-4, L4-5 and L5-S1 level. No acute cortical disruption or gross malalignment. No lytic or blastic lesions. Vascular calcifications. Subchondral cyst formation and joint space narrowing and sclerosis along the right coxofemoral joint no fully included in the [id number]. Sclerosis and vacuum phenomenon, right sacroiliac joint. IMPRESSION: Multilevel lumbar spondylosis without acute fracture or trauma-related listhesis. Osteoarthrosis/osteoarthritis, moderate to severe, right hip. Electronically signed by: John Ellis MD 06/03/2025 12:00 PM EST RP Dictated By: John Gonzalez MD Signed By: <Electronically signed by John Martin MDin OV> 06/03/25 1200 DD/ 1153 TD/TT: 06/03/25 1155 Rotary Engraver: [facility] External Provider IMG XR PROCEDURES Final Result * XR Lumbar Spine 2-3 Views (06/03/2025 11:50 AM EST) Anatomical Region Laterality Modality Spine, L-spine Radiographic Citlaly ging 06/03/2025 11:5 0 AM EST Narrative 06/03/2025 12:03 PM EST [place] [address] XRay Report Signed Patient: Krista Peck MR#: [id number] : 1945 Acct:[id number] Age/Sex: 79 / F ADM Date: 06/03/25 Loc: HO.ED Attending Dr: Ordering Physician: Hayley Colin Date of Service: 06/03/25 Procedure(s): XR lumbar spine 2-3V Accession Number(s): [id number] cc: Norma Brown MD; Hayley Colin Reason for Exam: fall on back EXAMINATION: XR THORACIC SPINE CLINICAL INFORMATION: fall on back COMPARISON: None available. TECHNIQUE: AP and lateral views FINDINGS: Multilevel marginal osteophyte formation and endplate sclerosis decreased intervertebral disc height throughout the axial skeleton. 10% volume loss of the vertebral bodies in the mid thoracic spine likely old and osteoporotic. No acute cortical disruption or gross malalignment. No lytic or blastic lesions. S-shaped curvature of the thoracic spine which could be positional. Kyphotic deformity mid thoracic spine. XR/XR lumbar spine 2-3V IMPRESSION: Multilevel spondylosis without acute fracture or trauma-related listhesis. EXAMINATION: XR LUMBOSACRAL SPINE CLINICAL INFORMATION: fall on back COMPARISON: None available. TECHNIQUE: AP and lateral views. FINDINGS: Multilevel marginal osteophyte formation and endplate sclerosis subchondral cyst formation throughout the axial skeleton pronounced at L3-4, L4-5 and L5-S1 level. No acute cortical disruption or gross malalignment. No lytic or blastic lesions. Vascular calcifications. Subchondral cyst formation and joint space narrowing and sclerosis along the right coxofemoral joint no fully included in the [id number]-[id number]. Sclerosis and vacuum phenomenon, right sacroiliac joint. IMPRESSION: Multilevel lumbar spondylosis without acute fracture or trauma-related listhesis. Osteoarthrosis/osteoarthritis, moderate to severe, right hip. Electronically signed by: John Ellis MD 06/03/2025 12:00 PM [facility] Dictated By: John Gonzalez MD Signed By: <Electronically signed by John Martin MD in OV> 06/03/25 1200 DD/ 1150 TD/TT: 06/03/25 1155 Rotary Engraver: Procedure Note Donotuseinterpreter, Image - 06/03/2025 [place] [address] XRay Report Signed Patient: Andreia Peck#: [id number] : 7Acct:[id number] Age/Sex: 79 / FADM Date: 06/03/25 Loc: HO.ED Attending Dr: Ordering Physician: Hayley Colin Date of Service: 06/03/25 Procedure(s): XR lumbar spine 2-3V Accession Number(s): [id number] cc: Norma Brown MD; Hayley Colin Reason for Exam: fall on back EXAMINATION: XR THORACIC SPINE CLINICAL INFORMATION: fall on back COMPARISON: None available. TECHNIQUE: AP and lateral views FINDINGS: Multilevel marginal osteophyte formation and endplate sclerosis decreased intervertebral disc height throughout the axial skeleton. 10% volume loss of the vertebral bodies in the mid thoracic spine likely old and osteoporotic. No acute cortical disruption or gross malalignment. No lytic or blastic lesions. S-shaped curvature of the thoracic spine which could be positional. Kyphotic deformity mid thoracic spine. XR/XR lumbar spine 2-3V IMPRESSION: Multilevel spondylosis without acute fracture or trauma-related listhesis. EXAMINATION: XR LUMBOSACRAL SPINE CLINICAL INFORMATION: fall on back COMPARISON: None available. TECHNIQUE: AP and lateral views. FINDINGS: Multilevel marginal osteophyte formation and endplate sclerosis subchondral cyst formation throughout the axial skeleton pronounced at L3-4, L4-5 and L5-S1 level. No acute cortical disruption or gross malalignment. No lytic or blastic lesions. Vascular calcifications. Subchondral cyst formation and joint space narrowing and sclerosis along the right coxofemoral joint no fully included in the [id number]-gr-[id number]. Sclerosis and vacuum phenomenon, right sacroiliac joint. IMPRESSION: Multilevel lumbar spondylosis without acute fracture or trauma-related listhesis. Osteoarthrosis/osteoarthritis, moderate to severe, right hip. Electronically signed by: John Ellis MD 06/03/2025 12:00 PM [facility] Dictated By: John Gonzalez MD Signed By: <Electronically signed by John Martin MDin OV> 06/03/25 1200 DD/ 1150 TD/TT: 06/03/25 1155 Rotary Engraver: [facility] External Provider IMG XR PROCEDURES Final Result documented in this encounter Visit Diagnoses Not on filedocumented in this encounter Additional Health Concerns Assessment Noted Time PHQ-9 Depression Total Score: 6 03/16/20 23 10:33 AM EDT documented as of this encounter Care Teams Supervisor Edging Relationship Specialty Start Date End Date Mia Marie CNP [address] [place] [phone] PCP - General Family Medicine 05/20/25 documented as of this encounter
--- OUTSIDE RECORDS SUMMARY | 2025-06-03 14:21 | XMS_ITS | Encounter Summary ---
Author Organization [employer] Address [address] [facility] [address]t [place] [address] Care Team Providers Care Chemical Analyst Name Role Phone Norma Brown MD Primary Care Provider Mia Marie CNP Primary Care Provider [phone] Encounter Details Date Type Department Care Team ([facility] st Contact Info) Description 09/19/2024 Orders Only [facility] [address] [place], [place] [phone] Norma Brown MD [address] [place] [address] Social History Tobacco Use Types Packs/Day Years [...] Procedure Name Priority Date/Time Associated Diagnosis Comments CBC WITH AUTO DIFFERENTIAL Routine 06/03/2025 11:57 AM EST documented in this encounter Results * (ABNORMAL) CBC auto differential (06/03/2025 11:57 AM EST) White Blood Count 5.3 4.8 - 10.8 X10*3/uL [facility] Red Blood Count 4.06(L) 4.20 - 5.50 X10*6/uL [facility] Hemoglobin 11.2(L) 12.0 - 16.0 g/dl [facility] Hematocrit 36.2(L) 37.0 - 47.0 % [facility] Mean Corpuscular Volume 89.2 80.0 - 98.0 fL [facility] Mean Corpuscular Hemoglobin 27.6 27.0 - 33.0 pg [facility] Mean Corpuscular HGB Conc 30.9(L) 31.0 - 35.0 g/dl [facility] Red Cell Distribution Width 15.2 11.0 - 16.0 % [facility] Platelet Count 174 160 - 400 X10*3/uL [facility] Mean Platelet Volume 10.3 9.4 - 12.3 fL [facility] Neutrophils Percent Auto 50.6 45 - 73 % [facility] Imm Gran Pct Auto 0.2 0.0 - 0.4 % [facility] Lymphocytes Percent Auto 35.0 20 - 40 % [facility] Monocytes Percent Auto 8.6 2 - 11 % [facility] Eosinophils Percent Auto 4.5(H) 0 - 4 % [facility] Basophils Percent Auto 1.1 0 - 2 % [facility] NRBC Pct Auto 0.0 0.0 - 0.2 /100WBC [facility] Neutrophils Absolute Auto 2.7 2.0 - 8.3 x10*3/uL [facility] Imm Gran Abs Auto 0.01 0.00 - 0.03 X10*3/uL [facility] Lymphocytes Absolute Auto 1.9 1.2 - 4.9 X10*3/uL [facility] Monocytes Absolute Auto 0.5 0.1 - 1.2 X10*3/uL [facility] Eosinophils Absolute Auto 0.2 0.0 - 0.4 X10*3/uL [facility] Basophils Absolute Auto 0.1 0.0 - 0.2 X10*3/uL [facility] NRBC Abs Auto 0.000 0.0 - 0.012 X10*3/uL [facility] 06/03/2025 11:5 7 AM EST 06/03/2025 12:00 PM EST us Generic External Data Provider LAB BLOOD ORDERAB LES Final Result [facility] [address] [place] [phone] documented in this encounter Visit Diagnoses Not on filedocumented in this encounter Additional Health Concerns Assessment Noted Time PHQ-9 Depression Total Score: 6 03/16/20 23 10:33 AM EDT documented as of this encounter Care Teams Chemical Analyst Relationship Specialty Start Date End Date Norma Brown MD [address] [place] [phone] PCP - General Family Medicine 07/05/12 05/19/25 Mia Marie CNP [address] [place] [phone] PCP - General Family Medicine 05/20/25 documented as of this encounter
--- OUTSIDE RECORDS SUMMARY | 2025-06-03 14:21 | XMS_ITS | Encounter Summary ---
Author Organization [employer] Address [address] [place] [address] 7 [place] [address] Care Team Providers Care Circuit Rider Name Role Phone Norma Brown MD Primary Care Provider [phone] Mia Marie CNP Primary Care Provider [phone] Reason for Visit * Reason Comments Med Refill Encounter Details Date Type Department Care Team ([facility] st Contact Info) Description 11/01/2022 Refill C [facility] [address] [place], [place] [phone] Norma Brown MD [address] [place] [address] Social History Tobacco Use Types Packs/Day Years [...] on filedocumented in this encounter Care Teams Circuit Rider Relationship Specialty Start Date End Date Norma Brown MD [address] [place] [address] PCP - General Family Medicine 07/05/12 05/19/25 Mia Marie CNP [address] [place] [address] PCP - General Family Medicine 05/20/25 documented as of this encounter
--- OUTSIDE RECORDS SUMMARY | 2025-06-03 14:21 | XMS_ITS | Clinical Summary ---
Author Organization [employer] Address [address] [place] [address] Care Team Providers Care Orthodontic Laboratory Technician Name Role Phone Mia Marie SAL Primary Care Provider [phone] Allergies Active Allergy Reactions Criticality Noted Date Comments Aspirin 09/26/2010 Other reaction(s): unspecified Penicillin V 09/26/2010 Other reaction(s): unspecified Medications triamterene-hydro CHLOROthiazide (Dyazide) 37.5-25 MG capsule Take 1 capsule by mouth in the morning. 90 capsule 3 5 Active simvastatin (Zocor) 20 MG tablet Take 1 tablet (20 mg) by mouth at bedtime. 90 tablet 3 5 09/10/19 26 Active metFORMIN (Glucophage) 500 MG tablet Take 1 tablet (500 mg) by mouth with breakfast and with evening meal. 180 tablet 3 5 09/24/19 26 Active enalapril (Vasotec) 20 MG tabletIndications :Primary hypertension Take 1 tablet (20 mg) by mouth Once per day. 90 tablet 3 5 Active sertraline (Zoloft) 100 MG tablet Take 1 tablet (100 mg) by mouth Once per day. 90 tablet 3 5 Active cyanocobalamin (Vitamin B-12) 1000 MCG tablet Take 1 tablet (1,000 mcg) by mouth Once per day. 30 tablet 11 5 11/07/19 26 Active Active Problems Problem Noted Date Diagnosed Date Benign hypertension 12/04/2013 Depressive disorder 12/04/2013 Hypercholesterolemia 12/04/2013 Type II diabetes mellitus 10/21/2012 Encounters Date Type Department Care Team Description 06/03/2025 Orders Only [facility] External Provider, [facility] from Last 3 Months Immunizations Immunization Administration Dates Next Due Pfizer Covid-19 Vaccine [...] 88 11/06/2024 9:04 AM EDT Temperature 37.1 C (98.7 F) 11/06/2024 9:04 AM EDT Respiratory Rate 16 11/06/2024 9:04 AM EDT Oxygen Saturation 98% 11/06/2024 9:04 AM EDT Inhaled Oxygen Concentration - - Weight 52.6 kg (116 lb) 11/06/2024 9:04 AM EDT Height 151.1 cm (4' 11.5 ) 11/06/2024 9:04 AM ED T Body Mass Index 23.04 11/06/2024 9:04 AM EDT Plan of Treatment Health Maintenance Due Date Last Done Comments HIB Vaccines (1 of 1 - Risk 1-dose series) 03/18/1947 Meningococcal Vaccine (1 - Risk 2-dose series) 1947 Eye Exam 1956 Meningococcal B Vaccine (1 of 4 - Increased Risk) 1956 Alcohol/Substance Use Screening 1958 Hepatitis C Screening 1964 Diabetes: Urine Protein Screening 1965 Zoster Vaccines (2 of 3) 05/01/2017 03/06/2017 RSV Patients and Patients Aged 60 years or older (1 - 1-dose 75+ series) 2021 Depression Screening 03/16/2024 03/16/2023, 03/16/20 23 COVID-19 Vaccine ( season) 2025 06/29/2021, 06/08/2021 Influenza Vaccine (#1) 2025 Diabetes: Hemoglobin A1C 05/08/2025 025, 11/06/2024, 03/16/2023 SDOH Screening 10/29/2025 10/29/2024 Tobacco Screening 10/29/2025 10/29/2024 Diabetes: Foot Exam 11/06/2025 11/06/2024, 11/06/2024, 11/06/2024, Additional history exists Lipid Panel 11/06/2025 11/06/2024, 03/16/2023 DTaP/Tdap/Td Vaccines (2 - Td or Tdap) 03/16/2033 03/16/2023, 03/06/2017 Pneumococcal Vaccine: 50+ Years Completed 11/06/2024, 06/21/2018, 10/13/2005 HPV Vaccines Aged Out No longer eligi [...] KINASE, TOTAL Routine 06/03/2025 11:57 AM EST BASIC METABOLIC PANEL Routine 06/03/2025 11:57 AM EST HEPATIC FUNCTION PANEL Routine 06/03/2025 11:57 AM EST CBC WITH AUTO DIFFERENTIAL Routine 06/03/2025 11:57 AM EST XR THORACIC SPINE 3 VIEWS Routine 06/03/2025 11:53 AM EST XR LUMBAR SPINE 2-3 VIEWS Routine 06/03/2025 11:50 AM EST LIPID PANEL, STANDARD Routine 11/06/2024 9:59 AM EDT Type 2 diabetes mellitus without complication, without long-term current use of insulin (CMS/HCC) Benign hypertension POCT GLYCATED HEMOGLOBIN, TOTAL Routine 11/06/2024 9:29 AM EDT Type 2 diabetes mellitus without complication, without long-term current use of insulin (CMS/HCC) from Last 3 Months or Most Recently Relevant to Health Maintenance Results * (ABNORMAL) Urinalysis, Complete, with Reflex to Culture (06/03/2025 1:01 PM EST) Color Urine Yellow [facility] Appearance Urine Clear [facility] PH 7.0 5.0 - 9.0 [facility] Glucose Urine UA Negative Negative mg/dL [facility] Urine Blood Negative Negative [facility] Specific [place] - Urine 1.015 1.005 - 1.025 [facility] Urine Protein Negative Neg-Trace mg/dL [facility] Urine Ketones Negative Negative mg/dL [facility] Nitrite Urine Negative Negative [facility] Leukocyte Esterase Urine Trace(A) Negative [facility] RBC Urine 0-2 0 - 2 /HPF [facility] Urine WBC 0-5 0 - 5 /HPF [facility] Urine Squamous Epithelial Cell 3-5 0 - 2 /HPF [facility] Urine Bacteria None Seen None Seen [facility] Hyaline Casts, Urine 0-2 0 - 2 /LPF [facility] 06/03/2025 1:01 PM EST 06/03/2025 1:08 PM EST Narrative [facility] - 06/03/2025 1:18 PM EST [id number], Clean Catch us Generic External Data Provider LAB URINE ORDERAB LES Final Result Performing Organization Address City/State/[facility] Co de Phone Number [facility] [address] [place] [phone] * (ABNORMAL) CBC auto differential (06/03/2025 11:57 AM EST) White Blood Count 5.3 4.8 - 10.8 X10*3/uL [facility] Red Blood Count 4.06(L) 4.20 - 5.50 X10*6/uL [facility] Hemoglobin 11.2(L) 12.0 - 16.0 g/dl [facility] Hematocrit 36.2(L) 37.0 - 47.0 % [facility] Mean Corpuscular Volume 89.2 80.0 - 98.0 fL [facility] Mean Corpuscular Hemoglobin 27.6 27.0 - 33.0 pg [facility] Mean Corpuscular HGB Conc 30.9(L) 31.0 - 35.0 g/dl [facility] Red Cell Distribution Width 15.2 11.0 - 16.0 % [facility] Platelet Count 174 160 - 400 X10*3/uL [facility] Mean Platelet Volume 10.3 9.4 - 12.3 fL [facility] Neutrophils Percent Auto 50.6 45 - 73 % [facility] Imm Gran Pct Auto 0.2 0.0 - 0.4 % [facility] Lymphocytes Percent Auto 35.0 20 - 40 % [facility] Monocytes Percent Auto 8.6 2 - 11 % [facility] Eosinophils Percent Auto 4.5(H) 0 - 4 % [facility] Basophils Percent Auto 1.1 0 - 2 % [facility] NRBC Pct Auto 0.0 0.0 - 0.2 /100WBC [facility] Neutrophils Absolute Auto 2.7 2.0 - 8.3 x10*3/uL [facility] Imm Gran Abs Auto 0.01 0.00 - 0.03 X10*3/uL [facility] Lymphocytes Absolute Auto 1.9 1.2 - 4.9 X10*3/uL [facility] Monocytes Absolute Auto 0.5 0.1 - 1.2 X10*3/uL [facility] Eosinophils Absolute Auto 0.2 0.0 - 0.4 X10*3/uL [facility] Basophils Absolute Auto 0.1 0.0 - 0.2 X10*3/uL [facility] NRBC Abs Auto 0.000 0.0 - 0.012 X10*3/uL [facility] 06/03/2025 11:5 7 AM EST 06/03/2025 12:00 PM EST us Generic External Data Provider LAB BLOOD ORDERAB LES Final Result Performing Organization Address City/[facility]/ZIP Co de Phone Number [facility] [address] [place] [phone] * Creatine Kinase, Total (06/03/2025 11:57 AM EST) Creatine Kinase Total 30 26 - 140 U/L [facility] 06/03/2025 11:5 7 AM EST 06/03/2025 12:00 PM EST Generic External Data Provider LAB BLOOD ORDERAB LES Final Result Performing Organization Address [facility] Phone Number [facility] [address] [place] [phone] * Hepatic Function Panel (06/03/2025 11:57 AM EST) Pathologist [facility] Bilirubin, Total 0.4 0.0 - 1.0 mg/dL [facility] Bilirubin, Direct 0.2 0.0 - 0.5 mg/dL [facility] Aspartate Amino Transferase 17 5 - 31 U/L [facility] Alanine Aminotransferase 10 0 - 31 U/L [facility] Total Protein 6.7 6.5 - 8.0 g/dL [facility] Albumin Level 4.2 3.5 - 5.0 g/dL [facility] Alkaline Phosphatase 70 39 - 117 U/L [facility] 06/03/2025 11:5 7 AM EST 06/03/2025 12:00 PM EST Generic External Data Provider LAB BLOOD ORDERAB LES Final Result Performing Organization Address [facility] Co de Phone Number [facility] [address] [place] [phone] * (ABNORMAL) Basic Metabolic Panel (06/03/2025 11:57 AM EST) Pathologist [facility] Sodium 139 135 - 145 mmol/L [facility] Potassium 3.9 3.3 - 5.1 mmol/L [facility] Chloride 109(H) 96 - 108 mmol/L [facility] Carbon Dioxide 24 22 - 29 mmol/L [facility] Anion Gap 10(L) 12 - 20 [facility] Urea Nitrogen (BUN) 23(H) 9 - 16 mg/dL [facility] Creatinine, Serum 0.78 0.5 - 1.4 mg/dL [facility] Creatinine Clr Calc Pharmacy 42.7 [facility] Comment:Provided height and weight: 152.4 cm,47.627 kg.eGFR (calculated from the MDRD study equation) and eCrCl(calculated from the Cockcroft-Gault equation) are based ondifferent parameters and may not yield comparable results.If eCrCl result is absurd, please check patient'sheight/weight. Estimated Glomerular Filt Rate >60 [facility] Comment:Chronic Kidney Disea se: Estimated GFR < 60 mL/min/1.77i9Dpxxih Kidney Disease: Estimated GFR < 15 mL/min/1.73m2 Glucose 104 60 - 115 mg/dL [facility] Calcium 9.2 8.4 - 10.2 mg/dL [facility] 06/03/2025 11:5 7 AM EST 06/03/2025 12:00 PM EST us Generic External Data Provider LAB BLOOD ORDERAB LES Final Result Performing Organization Address City/State/[facility] Co de Phone Number [facility] [address] [place] [phone] * XR Thoracic Spine 3 Views (06/03/2025 11:53 AM EST) Anatomical Region Laterality Modality Spine, T-spine Radiographic Citlaly ging 06/03/2025 11:5 3 AM EST Narrative 06/03/2025 12:03 PM EST [address] [address] XRay Report Signed Patient: Krista Peck MR#: [id number] : 1945 Acct:[id number] Age/Sex: 79 / F ADM Date: 06/03/25 Loc: HO.ED Attending Dr: Ordering Physician: Hayley Colin Date of Service: 06/03/25 Procedure(s): XR thoracic spine 3V Accession Number(s): [id number] cc: Norma Brown MD; Hayley Colin Reason [...] coxofemoral joint no fully included in the piunq-[id number]-aqec. Sclerosis and vacuum phenomenon, right sacroiliac joint. IMPRESSION: Multilevel lumbar spondylosis without acute fracture or trauma-related listhesis. Osteoarthrosis/osteoarthritis, moderate to severe, right hip. Electronically signed by: John Ellis MD 06/03/2025 12:00 PM [facility] Dictated By: John Gonzalez MD Signed By: <Electronically signed by Jhon Martin MD in OV> 06/03/25 1200 DD/ 1153 TD/TT: 06/03/25 1155 Blending Tank Tender Helper: Procedure Note Donotuseinterpreter, Image - 06/03/[address] [address] XRay Report Signed Patient: Andreia Peck#: [id number] : 1945cct:[id number] Age/Sex: 79 / FADM Date: 06/03/25 Loc: HO.ED Attending Dr: Ordering Physician: Hayley Colin Date of Service: 06/03/25 Procedure(s): XR thoracic spine 3V Accession Number(s): [id number] cc: Norma Brown MD; Hayley Colin Reason [...] coxofemoral joint no fully included in the [id number]-bq-gjxm. Sclerosis and vacuum phenomenon, right sacroiliac joint. IMPRESSION: Multilevel lumbar spondylosis without acute fracture or trauma-related listhesis. Osteoarthrosis/osteoarthritis, moderate to severe, right hip. Electronically signed by: John Ellis MD 06/03/2025 12:00 PM [facility] Dictated By: John Gonzalez MD Signed By: <Electronically signed by John Martin MDin OV> 06/03/25 1200 DD/ 1153 TD/TT: 06/03/25 1155 Blending Tank Tender Helper: [facility] External Provider IMG XR PROCEDURES Final Result * XR Lumbar Spine 2-3 Views (06/03/2025 11:50 AM EST) Anatomical Region Laterality Modality Spine, L-spine Radiographic Citlaly ging 06/03/2025 11:5 0 AM EST Narrative 06/03/2025 12:03 PM EST [address] [address] XRay Report Signed Patient: Krista Peck MR#: [id number] : 1945 Acct:[id number] Age/Sex: 79 / F ADM Date: 06/03/25 Loc: HO.ED Attending Dr: Ordering Physician: Hayley Colin Date of Service: 06/03/25 Procedure(s): XR lumbar spine 2-3V Accession Number(s): [id number] cc: Norma Brown MD; Hayley Colin Reason [...] coxofemoral joint no fully included in the ekyvx-ez-sigp. Sclerosis and vacuum phenomenon, right sacroiliac joint. IMPRESSION: Multilevel lumbar spondylosis without acute fracture or trauma-related listhesis. Osteoarthrosis/osteoarthritis, moderate to severe, right hip. Electronically signed by: John Ellis MD 06/03/2025 12:00 PM EST Dictated By: John Gonzalez MD Signed By: <Electronically signed by John Martin MD in OV> 06/03/25 1200 DD/ 1150 TD/TT: 06/03/25 1155 Blending Tank Tender Helper: Procedure Note Donotuseinterpreter, Image - 06/03/2025 [place] [address] XRay Report Signed Patient: Andreia Peck#: [id number] : 7Acct:[id number] Age/Sex: 79 / FADM Date: 06/03/25 Loc: HO.ED Attending Dr: Ordering Physician: Hayley Colin Date of Service: 06/03/25 Procedure(s): XR lumbar spine 2-3V Accession Number(s): [id number] cc: Norma Brown MD; Hayley Colin Reason [...] coxofemoral joint no fully included in the cviye-vx-ssid. Sclerosis and vacuum phenomenon, right sacroiliac joint. IMPRESSION: Multilevel lumbar spondylosis without acute fracture or trauma-related listhesis. Osteoarthrosis/osteoarthritis, moderate to severe, right hip. Electronically signed by: John Ellis MD 06/03/2025 12:00 PM EST Dictated By: John Gonzalez MD Signed By: <Electronically signed by John Martin MDin OV> 06/03/25 1200 DD/ 1150 TD/TT: 06/03/25 1155 Blending Tank Tender Helper: [facility] External Provider IMG XR PROCEDURES Final Result * Lipid Panel, Standard (11/06/2024 9:59 AM EDT) Triglycerides 99 <150 mg/dL [facility] Comment:Desirable Triglyceri de: less than 150 mg/dLBorderline High Triglyceride 150-199 mg/dLHigh Triglyceride: 200-499 mg/dLVery High Triglyceride: greater than or equal to 5OO mg/dL Cholesterol 160 <200 mg/dL [facility] Comment:Desirable Cholestero l: less than 200 mg/dLBorderline High Cholesterol: 200-239 mg/dLHigh Cholesterol: greater than 239 mg/dL LDL Cholesterol Calculated 67 <100 mg/dL [facility] Comment:Desirable LDL: less than 100 mg/dLNear Optimal/Above Optimal LDL: 110- 129 mg/dLBorderline High LDL: 130-159 mg/dLHigh LDL: 160-189 mg/dLVery High LDL: greater than or equal to 190 mg/dL HDL Cholesterol 74 >40 mg/dL [facility] Comment:Desirable HDL: great er than 40 mg/dL Note: This HDL assay may give artificially low results in patients with liver disease. Blood Venous blood specimen / Unknown 11/06/2024 9:59 AM EDT 11/06/2024 2:13 PM EDT Norma Brown MD LAB BLOOD ORDERABLES Final Resul t [facility] [address] [place] [phone] * POCT HGB A1C (11/06/2024 9:29 AM EDT) Hemoglobin A1C 6.0 4.0 - 6.0 % QC Media Lot # [id number] Lot# Expiration Date Blood 11/06/2024 9:29 AM EDT Norma Brown MD POINT OF CARE TEST ENTER/EDIT OR DERABLES Final Result from Last 3 Months or Most Recently Relevant to Health Maintenance Insurance [employer] MEDICARE REPLACEMENT [facility] STANDARD Care Teams Orthodontic Laboratory Technician Relationship Specialty Start Date End Date Mia Marie CNP [address] [place] [phone] PCP - General Family Medicine 05/20/25
== END 2025-06-03 14:09 | disposition home or self-care (01) ==
PROVIDERS: Physician Assistant; Emergency Provider Emergency Medicine; PCP Student in an Organized Health Care Education/Training Program
DX: S29.9XXA Unspecified injury of thorax, initial encounter (principal); S39.92XA Unspecified injury of lower back, initial encounter; E11.9 Type 2 diabetes mellitus without complications; I10 Essential (primary) hypertension; W18.30XA Fall on same level, unspecified, initial encounter; Y93.9 Activity, unspecified; Y92.9 Unspecified place or not applicable; Y99.9 Unspecified external cause status; Z88.0 Allergy status to penicillin; Z88.6 Allergy status to analgesic agent
CPT/HCPCS: 36415; 72072; 72100; 80048; 80076; 81001; 82550; 85025; 99283; 99284

== ENCOUNTER → 2025-06-03 11:36 | Outpatient (BNV) | payer MEDICARE, SELFPAY | PROVIDERS: PCP Student in an Organized Health Care Education/Training Program; Visit Provider Radiology Diagnostic Radiology | DX: M47.817 Spondylosis without myelopathy or radiculopathy, lumbosacral region (principal); M16.11 Unilateral primary osteoarthritis, right hip; M47.815 Spondylosis without myelopathy or radiculopathy, thoracolumbar region; Z04.3 Encounter for examination and observation following other accident | CPT/HCPCS: 72072; 72100 ==